=== PATIENT | female | born 1985 | race Caucasian/White ===

== ENCOUNTER 2016-09-05 01:48 | Emergency (ER) | payer OTHER ==
[2016-09-05 01:53] VITALS: BP 117/67
[2016-09-05 02:12] LABS: Urine Bacteria Absent (Absent); Urine Bilirubin Negative (Negative); Urine Glucose Negative (Negative); Urine Nitrite Negative (Negative)
[2016-09-05] MEDS ORDERED: Nitrofurantoin Macrocrystals* 100 MG CAP PO ONE (02:18)
[2016-09-05] MEDS ORDERED: Phenazopyridine TAB* 100 MG PO ONE (02:18)
--- NOTE | 2016-09-05 02:20 | ED ---
GI/ HPI - HPI Summary HPI Summary: 31F presents for UTI symptoms for two hours. She admits to dysuria, frequency, and urgency. She denies any n/v/d/c or flank pain. She denies any vaginal discharge. She denies any fever. She has a history of UTI but has not had one in a while. She admits to bladder pain. She has not taken any azo. She is not sure if she is or not. She denies any vaginal discharge. - History of Current Complaint Chief Complaint: EDUrogenitalProblems Time Seen by Provider: 09/05/16 02:14 Stated Complaint: BLADDER PAIN Pain Intensity: 3 - Allergy/Home Medications Allergies/Adverse Reactions: Allergies Allergy/AdvReac Type Severity Reaction Status Date / Time No Known Allergies Allergy Verified 08/24/15 10:16 PMH/Surg Hx/FS Hx/Imm Hx Endocrine/Hematology History: Denies: Hx Diabetes Cardiovascular History: Denies: Hx Hypertension, Hx Pacemaker/ICD History: Denies: Hx Renal Disease Sensory History: Denies: Hx Hearing Aid Psychiatric History: Denies: Hx Panic Disorder Infectious Disease History: No Infectious Disease History: Denies: Traveled Outside the [place] in Last 30 Days - Family History Known Family History: Positive: Hypertension - Social History Alcohol Use: Occasionally Substance Use Type: Reports: None Smoking Status (MU): Never Smoked Tobacco Review of Systems Negative: Fever Negative: Chest Pain Negative: Shortness Of Breath Positive: Abdominal Pain - bladder pain. Negative: Vomiting, Diarrhea, Nausea Positive: dysuria, frequency. Negative: flank pain All Other Systems Reviewed And Are Negative: Yes Physical Exam Triage Information Reviewed: Yes Vital Signs On Initial Exam: Initial Vitals Temp Pulse Resp BP Pulse Ox 97.3 F 65 16 117/67 100 09/05/16 01:51 09/05/16 01:51 09/05/16 01:51 09/05/16 01:51 09/05/16 01:51 Vital Signs Reviewed: Yes Appearance: Positive: Well-Appearing Skin: Positive: Warm, Dry Head/Face: Positive: Normal Head/Face Inspection Eyes: Positive: Normal, Conjunctiva Clear Respiratory/Lung Sounds: Positive: Clear to Auscultation, Breath Sounds Present Cardiovascular: Positive: Normal, RRR Abdomen Description: Positive: Soft, Other: - mild suprapubic tenderness Bowel Sounds: Positive: Present Diagnostics - Vital Signs Vital Signs Temp Pulse Resp BP Pulse Ox 09/05/16 01:51 97.3 F 65 16 117/67 100 - Laboratory Lab Results: Lab Results 09/05/16 Range/Units 02:00 Urine Color Straw Urine Appearance Clear Urine pH 8.0 (5-9) Ur Specific [place] 1.005 L (1.010-1.030) Urine Protein Negative (Negative) Urine Ketones Negative (Negative) Urine Blood 3+ H (Negative) Urine Nitrate Negative (Negative) Urine Bilirubin Negative (Negative) Urine Urobilinogen Negative (Negative) Ur Leukocyte Esterase 3+ H (Negative) Urine WBC (Auto) 3+(>20/hpf) H (Absent) Urine RBC (Auto) 2+(6-10/hpf) H (Absent) Ur Squamous Epith Cells Present H (Absent) Urine Bacteria Absent (Absent) Urine Glucose Negative (Negative) Lab Statement: Any lab studies that have been ordered have been reviewed, and results considered in the medical decision making process. GIGU Course/Dx - Course Course Of Treatment: 31F presents for UTI symptoms for two hours. She admits to dysuria, frequency, and urgency. She denies any n/v/d/c or flank pain. She denies any vaginal discharge. She denies any fever. She has a history of UTI but has not had one in a while. She admits to bladder pain. on exam tender pelvic area. u/a shows leuko and wbc. did not get urine before d/c so placed on macrobid because patient unsure if . patient requesting dose of fluconazole. patient understands and agrees with plan - Diagnoses Differential Diagnoses - Female: Pyelonephritis, Urinary Tract Infection, Ureteral Calculi Provider Diagnoses: UTI (urinary tract infection) Discharge - Discharge Plan Condition: Good Disposition: HOME Prescriptions: Fluconazole 150 MG (NF) [Diflucan 150 mg (NF)] 150 mg PO ONCE #1 tab Nitrofurantoin Monohyd Macro [Macrobid] 100 mg PO BID #13 cap Phenazopyridine TAB* [Pyridium 100 mg TAB*] 200 mdi PO TID #10 tab Patient Education Materials: Urinary Tract Infection in Women (ED) Referrals: Cristobal Lainez NP [Primary Care Provider] - Additional Instructions: Take Macrobid twice a day for 7 days, first dose given in ED Take pyridium two tablets three times a day with food for 2 days, first dose given in ED Drink plenty of fluids Follow up with primary in 7 days Return to ED if develop fever, flank pain, nausea, or vomiting or any new or worsening symptoms
[2016-09-05 02:48] LABS: Manual Entry Verification CAR0052; UR Preg Internal Control QC Line Present; UR Preg Kit Lot# 6090065
--- NOTE | 2016-09-07 10:55 | PN ---
Progress Note - Progress Note Date of Service: 09/05/16 Note: Urine preliminary results obtained and had 50-75,000 growth of e. coli. Patient diagnosed and treated for UTI with Macrobid. Will wait for final susceptibility results. No change or further action needed at this time Also given pyridium and fluconazole
== END 2016-09-05 02:39 | disposition home or self-care (01) ==
LOC: ED 01:48
DX: N39.0 Urinary tract infection, site not specified (principal)
CPT/HCPCS: 81003; 81015; 81025; 87077; 87086; 87186; 99282; A9270-GY